=== PATIENT | female | born 1970 | race Two or more races ===

== ENCOUNTER 2024-09-28 19:25 | Inpatient (IN) | payer OTHER, SELFPAY ==
[2024-09-28 19:27] VITALS: PULSE 83; RESP 20; O2SAT 100; BMI 22.8
[2024-09-28 21:00] VITALS: BP 122/71; PULSE 87; RESP 18; TEMP 36.9; O2SAT 95
--- NOTE | 2024-09-28 21:03 | PD.EDRME ---
Rapid Medical Screening Exam RME Arrival date/time: 09/28/24 19:25 53-year-old female past medical history of abdominal surgeries presents emergency department complaining of severe abdominal pain 10 out of 10 with nausea and vomiting has been ongoing for 3 days. Chief Complaint: Abdominal Pain Time Seen by Provider: 09/28/24 20:18 Vital signs: Vital Signs Temperature 98.4 F 09/28/24 21:00 Pulse Rate 87 09/28/24 21:00 Respiratory Rate 18 09/28/24 21:00 Blood Pressure 122/71 09/28/24 21:00 Pulse Oximetry (%) 95 09/28/24 21:00 Oxygen Delivery Method Room Air 09/28/24 21:00 Vital signs reviewed by provider: Yes
[2024-09-28] MEDS: ONDANSETRON ODT 4 MG TABRAP PO (21:23)
[2024-09-28] MEDS: KETOROLAC INJ 60 MG/2 ML VIAL 30 MG IM (21:24)
--- NOTE | 2024-09-28 21:43 | XR_ITS ---
Examination: CT abdomen with intravenous contrast CT pelvis with intravenous contrast 2-D coronal reconstructions 2-D sagittal reconstructions Date and time of exam:September 28, 2024 10:53 PM INDICATIONS: Onset severe lower abdominal pain today. CTDI: vol (mGy) 5.27 DLP: (mGycm) 273 Technique: Multiple axial sections of the abdomen and pelvis have been obtained. 64 slice high-resolution scanner used. 3 mm axial sections have been obtained, post intravenous injection 60 cc [id number] 2-D sagittal, coronal reconstructions obtained. Low dose protocols were performed. One or more of the following dose reduction techniques were used; automated exposure control, adjustment of the mA and/or KV according to patient size, use of iterative reconstruction technique. Findings: No focal liver lesions Mild splenomegaly No gallstones No pancreatic mass No renal or ureteral calculi, no hydronephrosis Multiple fluid distended small bowel loops with small bowel significant wall thickening Retroverted uterus Intact urinary bladder Prominent osteopenia with chronic osteoporotic compression L1 IMPRESSION: Small bowel obstruction pattern Recommend Gastrografin small bowel series follow-up
[2024-09-28 21:48] LABS: Basophils % (Auto) 0 % (0-2.5); Eosinophils % (Auto) 0 % (0-10); Hematocrit 38.6 % (36.0-46.0); Hemoglobin 13.4 g/dL (12.0-16.0); Immature Granulocytes % (Auto) 0 % (0-0); Immature Granulocytes Auto 0.02 Thou/mm3 (0.00-0.00); Lymphocytes # (Auto) 0.7 Thou/mm3 (1.0-4.8); Lymphocytes % (Auto) 7 % (10-50); Mean Corpuscular HGB Conc 34.7 g/dl (31.0-37.0); Mean Corpuscular Hemoglobin 29.8 pg (25.0-35.0); Mean Corpuscular Volume 86 fL (80-100); Monocytes # (Auto) 0.5 Thou/mm3 (0.0-0.8); Monocytes % (Auto) 6 % (0-12); Neutrophils # (Auto) 7.9 Thou/mm3 (1.8-7.7); Neutrophils % (Auto) 87 % (37-80); Nucleated Red Blood Cell % 0 /100 WBC (0); Platelet Count 190 Thou/mm3 (140-440); RDW Standard Deviation 42.3 fL (36.4-46.3); Red Blood Count 4.49 Miln/mm3 (4.00-5.20); White Blood Count 9.1 Thou/mm3 (3.6-11.0)
[2024-09-28 21:58] LABS: Collection Type, Urine Clean Catch
[2024-09-28 22:01] LABS: Bilirubin,Urine Negative (Negative); Blood,Urine 1+ (Negative); Clarity,Urine Clear (Clear/Hazy); Color,Urine Yellow (Lt Yel-Yel); Culture Indicated,Urine Not Indicated; Glucose, Urine Negative (Negative); Ketones,Urine 4+ (Negative); Leukocyte Esterase,Urine Negative (Negative); Nitrite,Urine Negative (Negative); PH,Urine 8.5 (5.0-7.0); Protein,Urine 2+ (Neg - Trace); RBC,Urine 39 /hpf (0-3); Specific Gravity,Urine 1.028 (1.001-1.035); Squamous Epithelial Cell,Urine 2 /hpf (0-5); Urobilinogen,Urine Negative mg/dL (0.0-1.0); WBC,Urine 2 /hpf (0-5)
[2024-09-28 22:12] LABS: Alanine Aminotransferase 16 U/L (10-49); Albumin/Globulin Ratio 1.6 (1.2-2.2); Alkaline Phosphatase 67 U/L (46-116); Anion Gap 13 (7-16); Aspartate Amino Transferase 21 U/L (0-34); BUN/Creatinine Ratio 19 Ratio (12-20); Bilirubin,Total 1.4 mg/dL (0.3-1.2); Blood Urea Nitrogen 15 mg/dL (9-23); Calcium 10.7 mg/dL (8.3-10.6); Calcium (Corrected) 10.7 mg/dL (8.5-10.1); Carbon Dioxide 23.4 mMol/L (20.0-31.0); Chloride 102 mMol/L (98-107); Creatinine (Component) 0.8 mg/dL (0.6-1.3); Estimated Creatinine Clearance 65.1 mL/min (>60); Globulin 3.2 gm/dL (2.3-3.5); Glucose 129 mg/dL (74-106); Lipase 40 U/L (12-53); Osmolality,Calculated 278 (275-295); Potassium 3.4 mMol/L (3.4-5.1); Sodium 138 mMol/L (136-145); Total Protein 8.2 gm/dL (5.7-8.2); eGFR > 60 See Note
--- NOTE | 2024-09-28 22:28 | PC.NURSE ---
Use metal milling machine operator #[id number] CT screening.
[2024-09-28 23:11] VITALS: BP 100/73; PULSE 81; RESP 18; TEMP 36.9; O2SAT 99
--- NOTE | 2024-09-28 23:55 | EDNOTE_ITS ---
ED Abdominal Pain RME/HPI General Chief Complaint: Abdominal Pain Stated complaint: ABD PAIN Time seen by provider: 09/28/24 20:18 Arrival date/time: 09/28/24 19:25 Source: patient Mode of arrival: ambulatory Limitations: language barrier (Mandarin) RME / HPI RME / HPI narrative: 09/28/24 19:25 53-year-old female past medical history of abdominal surgeries presents emergency department complaining of severe abdominal pain 10 out of 10 with nausea and vomiting has been ongoing for [address] CRAWFORD MAIN ED EVALUATION: 53-year-old female patient presents to the emergency department with complaints of abdominal pain. She primarily speaks Mandarin, and obtaining a full history was limited despite the use of a search marketing specialist. The patient reported a history of two previous intestinal surgeries, though the etiology and details of the procedures are unknown. A midline abdominal surgical scar is noted on examination. Patient also reports 3-day history of nausea and vomiting. Related Data Allergies Allergy/AdvReac Type Severity Reaction Status Date / Time No Known Allergies Allergy Verified 09/28/24 19:31 Review of Systems Review of Systems Systems Reviewed: All systems reviewed, normal except as documented Past Medical History Past Medical History CARDIAC: Negative Cardiac Disorders RESPIRATORY: Negative Asthma GENITOURINARY: Negative Renal Disease ENDOCRINE: Negative Diabetes Mellitus Type 2 HEMATOLOGIC: Negative Sickle Cell Disease Social History SMOKING STATUS: Never smoker ED Exam Narrative Physical exam: GENERAL APPEARANCE: alert and oriented x 4, well-developed, well-nourished, no acute distress VITALS: All vitals were reviewed and the pulse ox is 99% on room air, which is normal according to my interpretation. HEENT: Normocephalic, atraumatic; pupils equal, round, reactive to light; EOMI; mucous membranes pink, moist; oropharynx clear NECK: Supple LUNGS: CTABL; no wheezes, no rales, no rhonchi HEART: Regular rate, regular rhythm; normal S1, S2; no murmurs ABDOMEN: non distended; normal BS; soft, mild tenderness, no guarding, no rebound; no masses, no organomegaly, no hernia, midline abdominal surgical scar BACK: no CVA tenderness EXTREMITIES: atraumatic; no edema NEUROLOGIC: awake; alert and oriented x4; cranial nerves II-XII grossly intact; no focal sensory or motor deficits PSYCHIATRIC: appropriate mood and affect SKIN: warm, dry, normal color; no rashes General Limitations: Present language barrier (Mandarin) Course Quality Measures none Orders Category Date Time Status COVID-19 Screening Questionnaire NOW Care 09/29/24 00:[address] Screening NOW Care 09/28/24 21:43 Active Decision to Admit X1 Care 09/29/24 00:[address] abdomen pelvis w con Stat Exams 09/28/24 21:43 Completed XR small bowel single contrast Stat Exams 09/29/24 00:37 Ordered CBC Stat Lab 09/28/24 21:14 Completed CMP [Comprehensive Metabolic Panel] Stat Lab 09/28/24 21:14 Completed Lipase Stat Lab 09/28/24 21:14 Completed Urinalysis, C/S if Indicated Stat Lab 09/28/24 21:48 Completed Ketorolac Inj [Toradol Inj] Med 09/28/24 21:02 Discontinued 30 mg IM X1 ONE Morphine Inj Med 09/28/24 22:17 Discontinued 5 mg IVP X1 ONE Ondansetron Inj [Zofran Inj] Med 09/28/24 22:17 Discontinued 4 mg IV X1 ONE Ondansetron Odt [Zofran Odt] Med 09/28/24 21:02 Discontinued 4 mg PO X1 ONE Vital Signs Vital signs: Vital Signs Temperature 98.4 F 09/28/24 21:00 Pulse Rate 87 09/28/24 21:00 Respiratory Rate 18 09/28/24 21:00 Blood Pressure 122/71 09/28/24 21:00 Pulse Oximetry (%) 95 09/28/24 21:00 Oxygen Delivery Method Room Air 09/28/24 21:00 Abdominal Pain MDM MDM Narrative MDM Narrative:: 53 year old female coming in for abdominal pain. CT reveals SBO pattern. Case d/w hospitalist resident who accepts patient for admission. Gastrografin small bowel series ordered. Scribe Attestation: Maribel Abdi, am scribing for and in the presence of Dr. Crawford. Provider Notation: Although this document has been carefully reviewed, there may still be some phonetic and other typographical errors. These errors are purely grammatical due to imperfections in the software program and should not be construed in any way to compromise the substance of the patient's medical care during this visit. Patient data External records reviewed:: None Clinical information provided by:: patient and family Social determinants that could affect healthcare access:: other (specify) (language barrier) Patient has the following chronic illnesses:: See PMH How is presenting disease/condition affected by chronic disease/condition?: no chronic disease Evaluation data The following diagnostics were reviewed and interpreted by me:: lab results and radiology exam(s) Lab and/or radiology exams considered but not ordered:: none Interpretation Summary: I personally reviewed the radiology data and agree with the radiologist's interpretation. Examination: CT abdomen with intravenous contrast CT pelvis with intravenous contrast 2-D coronal reconstructions 2-D sagittal reconstructions Date and time of exam:September 28, 2024 10:53 PM INDICATIONS: Onset severe lower abdominal pain today. Findings: No focal liver lesions Mild splenomegaly No gallstones No pancreatic mass No renal or ureteral calculi, no hydronephrosis Multiple fluid distended small bowel loops with small bowel significant wall thickening Retroverted uterus Intact urinary bladder Prominent osteopenia with chronic osteoporotic compression L1 IMPRESSION: Small bowel obstruction pattern Recommend Gastrografin small bowel series follow-up Dictated By: César Duarte MD Medications / Prescriptions Medications or Prescriptions considered but not ordered:: none Medication administrations:: Medication Administration History Discontinued Medications Ketorolac Tromethamine (Ketorolac Inj 60 Mg/2 Ml Vial) 30 mg IM X1 ONE Stop: 09/28/24 21:03 Last Admin: 09/28/24 21:24 Dose: 30 mg Documented By: Morphine Sulfate (Morphine Sulf Inj 10 Mg/Ml Vial) 5 mg IVP X1 ONE Stop: 09/28/24 22:18 Ondansetron HCl (Ondansetron Odt 4 Mg Tabrap) 4 mg PO X1 ONE; Protocol Stop: 09/28/24 21:03 Last Admin: 09/28/24 21:23 Dose: 4 mg Documented By: Ondansetron HCl (Ondansetron Inj 2 Mg/Ml Inj 2 Ml) 4 mg IV X1 ONE Stop: 09/28/24 22:18 as above Consultations Consultation(s) initiated? (list below): Yes Consultation #1 (Physician, Specialty, Details): Hospitalist resident made aware of the patient?s HPI, PMHx, lab and/or radiology results. Treatment plan was discussed. Accepts patient for admission. Time: 00:34 Diagnosis Differential diagnosis abdominal pain: abdominal pain, diverticulitis, gastroenteritis and small bowel obstruction Most likely diagnosis given after review of the tests above:: Small bowel obstruction Admission Indicated Admission indicated?: indicated Admission Request Was there a request for admission?: Yes Admission Attestation Admission request attestation: Discussed case with [] from Hospitalist service regarding admission. Discussed patients ED course, exam findings, labs, and radiology results. The Hospitalist [agrees,declines] to accept the patient for admission. Disposition Plan Disposition Plan: Admit Discharge Plan Plan Patient Disposition: Admit Acute Care w/in Hospital Disposition Comment: MedSurg Prescriptions/Referrals Referrals: No Primary/Family,Physician [Primary Care Provider] - In 1 week Problem List Clinical Impression: Small bowel obstruction Patient/Caregiver Discharge Instructions Print Language: Albanian Stand Alone Forms: Fela Award Info., Patient Portal Info Letter
[2024-09-29] VITALS (9 sets, daily range): BP systolic 99–123; BP diastolic 70–90; PULSE 69–77; RESP 15–98; TEMP 36.1–36.8; O2SAT 97–100; BMI 22.8
--- NOTE | 2024-09-29 00:37 | XR_ITS ---
Examination: Small bowel series of KUBs Examination type: September 29, 2024 0114 hours INDICATIONS: Small bowel obstruction pattern on CT abdomen and pelvis September 28, 2024, abdominal pain and distention this week TECHNIQUE AND FINDINGS: Production Finisher film AP abdomen supine single view demonstrates contrast in the kidneys Patient received 120 cc Gastrografin with 30 minute 1 hour films obtained demonstrating distended jejunal small bowel loops IMPRESSION: Distended small bowel loops Multiple additional delayed films will be obtained
--- NOTE | 2024-09-29 02:15 | PD.RESHP ---
Documentation for date of: 09/29/24 [facility] History of Present Illness Chief complaint: Left lower abdominal pain x 3 days History of present illness: Patient is a 53-year-old Mandarin-speaking female with past medical history of partial colectomy in 2018 and SBO in 2020 requiring another bowel surgery who presented to the ED on 09/28/2024 with symptoms of left lower abdominal pain for 3 days. History was obtained using telephone HCIN interpretation services for Mandarin. Patient had worsening of the pain as well as nausea and 1 episode of nonbloody vomiting today which prompted her to come to the ED. Patient states that she last passed soft stool around approximately 11 am and 2 pm today. Patient states the reason for partial colectomy in 2019 was for inflammation. Denies history of cancer. Patient does not know if she had any history suggestive of inflammatory bowel diseases, diverticulitis, or ischemic bowel. Patient had a second surgery in 2020 requiring removal of another part of the bowel due to obstruction. Patient denies fevers, chills, sweats. Denies any recent weight loss. Currently not endorsing nausea or vomiting. ED Course: -Initial vitals were hemodynamically stable -Labs showed no abnormalities on CBC and CMP other than hypercalcemia of 10.7 and elevated total bilirubin 1.4 -In the ED, patient was given Zofran 4 mg IV x1, ketorolac 30 mg IM x1 -Patient was admitted for small bowel obstruction Review of Systems Review of systems otherwise negative except what is mentioned above. Past Medical History Past Medical History Comments PMH COMMENT: Past Medical History: None Family History: No noted family history of GI disorders Surgical History: Partial colectomy 2018, SBO requiring resection of bowel 2020 Social History: Denies history of smoking, denies current alcohol use, denies recreational drug use Current Medications: None (Source: Patient) Allergies: No known drug allergies Exam Vital Signs Temp Pulse Resp BP Pulse Ox O2 Del Method 98.4 F 81 18 100/73 99 Room Air 09/28/24 23:11 09/28/24 23:11 09/28/24 23:11 09/28/24 23:11 09/28/24 23:11 09/28/24 23:11 Narrative Exam Physical Exam General: Awake and in no acute distress. Speaks Mandarin. Conversational and non-toxic appearing. HEENT: Normocephalic, atraumatic, mucous membranes moist. Heart: Regular rate and rhythm, no murmurs. Lungs: Clear to auscultation with no wheezing or crackles. Abdomen: Large midline surgical scar present, well healed. Tenderness to palpation especially left lower quadrant. Soft, nondistended, minimal bowel sounds heard. Neurologic: Alert and oriented x3, no gross neurological deficit, and patient able to move all 4 extremities. Extremities: No edema. Skin: No rash or ecchymoses. Results: Labs 09/29/24 05:06 09/29/24 05:06 Labs: Short CBC 09/28/24 Range/Units 21:14 WBC 9.1 (3.6-11.0) Thou/mm3 Hgb 13.4 (12.0-16.0) g/dL Hct 38.6 (36.0-46.0) % Plt Count 190 (140-440) Thou/mm3 BMP 09/28/24 21:14 Sodium 138 Potassium 3.4 Chloride 102 Carbon Dioxide 23.4 BUN 15 Creatinine 0.8 Glucose 129 H Calcium 10.7 H Liver Function 09/28/24 Range/Units 21:14 Total Bilirubin 1.4 H (0.3-1.2) mg/dL AST 21 (0-34) U/L ALT 16 (10-49) U/L Alkaline Phosphatase 67 (46-116) U/L Albumin 5.0 (3.5-5.0) gm/dL Urine 09/28/24 Range/Units 21:48 Urine Color Yellow (Lt Yel-Yel) Urine Clarity Clear (Clear/Hazy) Urine pH 8.5 H (5.0-7.0) Ur Specific [place] 1.028 (1.001-1.035) Urine Protein 2+ A (Neg - Trace) Urine Glucose (UA) Negative (Negative) Quality Measures Quality Measures none Medications Home Medications and Allergies Home Medications ?Medication ?Instructions ?Recorded ?Confirmed ?Type No Known Home Medications 09/29/24 09/29/24 History Allergies Allergy/AdvReac Type Severity Reaction Status Date / Time No Known Allergies Allergy Verified 09/28/24 19:31 Visit Medications Acetaminophen (Acetaminophen 325 Mg Tablet) 650 mg PO Q6H PRN PRN Reason: Fever >100.4 or Pain 1-10 Stop: 10/29/24 01:55 Enoxaparin Sodium (Enoxaparin Sod Inj 40 Mg/0.4 Ml Syringe) 40 mg SC QDAY [facility] Stop: 10/13/24 08:59 Lactated Ringer's (Lactated Ringers) 1,000 mls @ 75 mls/hr IV .[id number] [facility] Stop: 09/29/24 15:19 Ketorolac Tromethamine (Ketorolac Inj 30 Mg/Ml Vial) 30 mg IVP Q6H PRN PRN Reason: PAIN SCALE 4-6 (Moderate Stop: 10/04/24 02:00 Morphine Sulfate (Morphine Sulf Inj 10 Mg/Ml Vial) 1 mg IVP Q6H PRN PRN Reason: PAIN SCALE 7-10 (Severe Stop: 10/04/24 01:55 Ondansetron HCl (Ondansetron Inj 2 Mg/Ml Inj 2 Ml) 4 mg IV Q6H PRN; Protocol PRN Reason: NAUSEA OR VOMITING Stop: 10/29/24 01:55 Pantoprazole Sodium (Pantoprazole Inj 40 Mg Vial) 40 mg IVP QDAY [facility] Stop: 10/29/24 08:59 Discontinued Medications Ketorolac Tromethamine (Ketorolac Inj 60 Mg/2 Ml Vial) 30 mg IM X1 ONE Stop: 09/28/24 21:03 Last Admin: 09/28/24 21:24 Dose: 30 mg Morphine Sulfate (Morphine Sulf Inj 10 Mg/Ml Vial) 5 mg IVP X1 ONE Stop: 09/28/24 22:18 Last Admin: 09/29/24 02:05 Dose: Not Given Ondansetron HCl (Ondansetron Odt 4 Mg Tabrap) 4 mg PO X1 ONE; Protocol Stop: 09/28/24 21:03 Last Admin: 09/28/24 21:23 Dose: 4 mg Ondansetron HCl (Ondansetron Inj 2 Mg/Ml Inj 2 Ml) 4 mg IV X1 ONE Stop: 09/28/24 22:18 Last Admin: 09/29/24 02:04 Dose: Not Given Assessment & Plan Plan 53-year-old Mandarin-speaking female with past medical history of partial colectomy in 2018 and SBO in 2020 requiring another bowel surgery who presented to the ED on 09/28/2024 with symptoms of worsening left lower abdominal pain for 3 days and episode of vomiting, admitted for small bowel obstruction found on imaging. #Small bowel obstruction Patient with history of major abdominal surgery and prior SBO also requiring surgery. -Gastrografin small bowel series -Pain control with ketorolac, morphine for severe pain -Zofran as needed for nausea -NPO -Aspiration precautions -Will insert NG tube if patient becomes symptomatic -IV maintenance fluids LR at 75 ml/hr for 1L #Mild hypercalcemia Corrected calcium 10.7 on chem panel. -IV fluid hydration -Trend on AM labs #Elevated total bilirubin Tbili of 1.4 on admission. -Trend on AM labs DVT prophylaxis: Lovenox 40 mg subQ GI prophylaxis: Pantoprazole 40 mg IV daily Diet: NPO Bates: None Lines: Peripheral IV Antibiotics: None CODE STATUS: FULL Reason for hospitalization: Small bowel obstruction Patient plan of care was discussed with the attending physician, Dr. Velasquez. Stormy Mandel, PGY-2 Attending Provider Attestation/Addendum 53-year-old female with history of bowel surgery, bowel obstruction was admitted for abdominal pain pain in the left lower quadrant associated with vomiting. Imaging showed small bowel obstruction. Patient will receive initial conservative management. Reassess periodically and repeat imaging. Check electrolytes including mag and Phos.
[2024-09-29] MEDS: RINGERS LACTATED 1000 ML 1,000 ML 75 ML IV (02:31)
--- NOTE | 2024-09-29 04:30 | XR_ITS ---
Examination: Abdomen AP single view Technique: AP portable supine abdomen, single view Exam date and time: September 29, 2024 0423 hours INDICATIONS: 3 hour delayed film post small bowel series today. However, contrast is present throughout the colon FINDINGS: Negative for complete small bowel obstruction abdominal pain and distention this week impression: Contrast distended ileal small bowel loops
[2024-09-29 05:40] LABS: Basophils % (Auto) 0 % (0-2.5); Eosinophils # (Auto) 0.1 Thou/mm3 (0.0-0.5); Eosinophils % (Auto) 1 % (0-10); Hematocrit 43.6 % (36.0-46.0); Hemoglobin 14.7 g/dL (12.0-16.0); Immature Granulocytes % (Auto) 0 % (0-0); Immature Granulocytes Auto 0.02 Thou/mm3 (0.00-0.00); Lymphocytes % (Auto) 11 % (10-50); Mean Corpuscular HGB Conc 33.7 g/dl (31.0-37.0); Mean Corpuscular Hemoglobin 29.5 pg (25.0-35.0); Mean Corpuscular Volume 87 fL (80-100); Monocytes # (Auto) 0.7 Thou/mm3 (0.0-0.8); Monocytes % (Auto) 8 % (0-12); Neutrophils # (Auto) 7.1 Thou/mm3 (1.8-7.7); Neutrophils % (Auto) 79 % (37-80); Nucleated Red Blood Cell % 0 /100 WBC (0); Platelet Count 220 Thou/mm3 (140-440); RDW Standard Deviation 43.8 fL (36.4-46.3); Red Blood Count 4.99 Miln/mm3 (4.00-5.20)
[2024-09-29 05:58] LABS: Anion Gap 12 (7-16); BUN/Creatinine Ratio 23 Ratio (12-20); Blood Urea Nitrogen 18 mg/dL (9-23); Calcium 10.6 mg/dL (8.3-10.6); Chloride 106 mMol/L (98-107); Creatinine (Component) 0.8 mg/dL (0.6-1.3); Estimated Creatinine Clearance 65.1 mL/min (>60); Glucose 129 mg/dL (74-106); Osmolality,Calculated 287 (275-295); Potassium 3.3 mMol/L (3.4-5.1); Sodium 142 mMol/L (136-145); eGFR > 60 See Note
--- NOTE | 2024-09-29 06:11 | PC.NURSE ---
MD Velasquez at bedside [facility] pt, HCIN safety advisor# [id number].
--- NOTE | 2024-09-29 06:21 | XR_ITS ---
Examination: Abdomen AP single view Technique: AP portable supine abdomen, single view Exam date and time: September 29, 2024 at 0700 hours INDICATIONS: 5 hour delayed film post small bowel series today FINDINGS: Contrast present almost entirely in the colon IMPRESSION: Negative for complete small bowel obstruction
[2024-09-29 06:59] LABS: Magnesium 2.5 mg/dL (1.6-2.6); Phosphorous 5.4 mg/dL (2.4-5.1)
--- NOTE | 2024-09-29 07:41 | PC.NURSE ---
Received report from Raza ORTEGA and assumed care of patient. Presents to ER for abd pain. Patient is GCS15 and being admitted for SBO. Patient is awake and answers all questions appropriately. Patient states current pain is 8/10.
--- NOTE | 2024-09-29 08:09 | PC.NURSE ---
Patient ambulated to restroom.
[2024-09-29] MEDS: PANTOPRAZOLE INJ 40 MG VIAL IVP (09:04)
[2024-09-29] MEDS: ENOXAPARIN SOD INJ 40 MG/0.4 ML SYRINGE SC (09:04)
[2024-09-29] MEDS: ONDANSETRON INJ 2 MG/ML INJ 2 ML 4 MG IV (09:05)
[2024-09-29] MEDS: POTASSIUM CHL 10 mEq IVPB 10 MEQ/100 ML BAG 100 MEQ IV ×2 (09:05→11:13)
[2024-09-29] MEDS: MORPHINE SULF INJ 10 MG/ML VIAL IVP (09:05)
--- NOTE | 2024-09-29 10:12 | PC.NURSE ---
Report given to Karol ORTEGA in Med Surg.
[2024-09-29] MEDS: POTASSIUM CHL 10 mEq IVPB 10 MEQ/100 ML BAG 50 MEQ IV ×2 (13:14→15:15)
--- NOTE | 2024-09-29 14:25 | ESDS_ITS ---
Planned Discharge Date 09/29/24 DS: Providers Provider Date of admission: 09/29/24 01:56 Primary care physician: Physician No Primary/Family Admitting Provider: Bhanu Velasquez MD Attending Provider on Admission: Ermias Raygoza MD Attending Provider on DC: Roxi Vines MD Discharging Provider: Roxi Vines MD DS: Diagnosis Problem List Completed Was Problem List Reviewed/Reconciled?: Yes Hospital Course Hospital Course Hospital course: Summary: 53-year-old Mandarin-speaking female with past medical history of partial colectomy in 2018 and SBO in 2020 requiring another bowel surgery who presented to the ED on 09/28/2024 with symptoms of worsening left lower abdominal pain for 3 days and episode of vomiting, admitted for small bowel obstruction found on imaging and resolved upon discharge. ER Course: -Initial vitals were hemodynamically stable -Labs showed no abnormalities on CBC and CMP other than hypercalcemia of 10.7 and elevated total bilirubin 1.4 -In the ED, patient was given Zofran 4 mg IV x1, ketorolac 30 mg IM x1 -Patient was admitted for small bowel obstruction Hospital Course: Small bowel obstruction noted on CT abdomen with small bowel obstruction pattern noted. Patient stated she had a cholecystectomy in 2018 secondary to possible ulcerative colitis, patient described as ulcer that burst and through an roller coaster operator services stated she believed she had ulcerative colitis. She later stated in 2020 she had a revision of the cholecystectomy. Updated patient and explained that the small bowel series showed resolution of the small bowel obstruction likely secondary to Gastrografin. Patient stated she now passing gas and also having bowel movements after the Gastrografin small bowel follow- through. Explained the patient that given previous abdominal surgeries she is at increased risk of small bowel obstructions. Patient is recommended to follow-up with primary care provider and make an appointment for a plastics process hand as there is a possible history of UC. Patient was understanding patient lives out of town in [place] and will be following up with her PCP there. Instructions: -Please follow up with your primary care provider within one week of discharge and ask for a referral for Refinery Operator Coking for you abdominal pain -If your symptoms worsen,please seek immediate medical attention and return to your nearest emergency room -If you do not have a primary care provider, you may follow up at the [facility] at [address], [place] [address], Disposition: Home #Small bowel obstruction, resolved. #Mild hypercalcemia #Elevated total bilirubin - The patient's plan was discussed with attending Dr. Raygoza and senior residents Dr. Andres Vines MD PGY1 Internal Medicine Time Spent with Patient Time attestation: Total time spent providing and/or coordinating discharge services: at least 35 minutes of time and coordination Exam Vital Signs Temp Pulse Resp BP Pulse Ox O2 Del Method 97.1 F 69 15 107/70 100 Room Air 09/29/24 12:00 09/29/24 12:00 09/29/24 12:00 09/29/24 12:09/29/24 12:09/29/24 12:00 Narrative Exam General Appearance: Alert & Oriented X3, well-nourished female who is lying in bed in no acute distress HEENT: Skull symmetrical and atraumatic. Conjunctivae pink and moist. Pupils equal, round, reactive to light and accommodation (PERRL). External ear without lesion or discharge. Straight, nares patient, mucosa pink, no discharge. No thyroid nodule appreciated. No cervical lymphadenopathy. Cardio: Normal Rate and Rhythm with S1 and S2 heart sounds. No murmurs or extra heart sounds auscultated. No bruits on carotid auscultation. No peripheral edema or cyanosis. Lungs: Symmetric with good expansion. Chest and back non-tender. Breath sounds vesicular without crackles, wheezing or rhonchi Abdomen: Non-tender, Non-distended, Normal Reactive Bowel Sounds Neuro: Alert, cooperative, oriented to person, place, and time. Speech clear. CN grossly intact. Upper motor strength 5/5 and Lower motor strength 5/5. Sensation intact. Discharge Plan Plan Patient Disposition: HOME (Self Care) Care Plan Goals: Instructions: -Please follow up with your primary care provider within one week of discharge and ask for a referral for Refinery Operator Coking for you abdominal pain -If your symptoms worsen,please seek immediate medical attention and return to your nearest emergency room -If you do not have a primary care provider, you may follow up at the [facility] at [facility] [address], [place] [address], Disposition: Home Prescriptions/Referrals Prescriptions/Med Rec: No Action No Known Home Medications Referrals: No Primary/Family,Physician [Primary Care Provider] - Patient/Caregiver Discharge Instructions Education Materials: Small Bowel Obstruction, How the Colon Works Print Language: Yoruba Stand Alone Forms: [employer]ela Award Info., Patient Portal Info Letter Discharge Order Discharge Orders: Discharge (Routine); Ordered 09/29/24 Ordered By: Roxi Vines Quality Discharge Quality Measures VTE prophylaxis MD Attestestation MD Attestation I have examined the patient, reviewed labs and imaging findings, discussed the case with the resident(s), and reviewed entered orders. I agree with the plan of care as outlined in this note. Dr. Raygoza
[2024-09-29 14:40] LABS: Potassium 3.9 mMol/L (3.4-5.1)
--- NOTE | 2024-09-29 16:43 | PC.CC ---
With court interpreter services for [place], court interpreter [place]lin #[id number]. Pt has limited Mos[place] speaking ability. ASW met with pt Alexzuhaircésar Shore at bedside to complete initial assessment. 53 yr old female admitted to hospitalist services for SBO. Pt is alert and oriented to person, place and situation. Pt expressed understanding admission orders. Pt able to confirm demographic information. Pt is from home [address] [place] [address] in [facility], pt is [facility] visiting a friend. Pt unable to name surrogate DM, stating she has no family in this area. Pt reports being independent with ambulation and in completing her ADLs. Pt reports she is not diabetic and is not on dialysis. Pt currently unemployed, and has [employer] [place] for primary health coverage. At time of D/c pt reports she will return to her friends residence.
== END 2024-09-29 17:59 | disposition home or self-care (01) | DRG 390 ==
LOC: SERX 09-29 00:33 → SERHOLD 09-29 02:22 → S3EX 09-29 10:11
PROVIDERS: Student in an Organized Health Care Education/Training Program; Admitting Provider Internal Medicine; Emergency Provider Emergency Medicine; Visit Provider Student in an Organized Health Care Education/Training Program
DX: K56.609 Unspecified intestinal obstruction, unspecified as to partial versus complete obstruction (principal); Z90.49 Acquired absence of other specified parts of digestive tract; E83.52 Hypercalcemia
CPT/HCPCS: 36415; 74018; 74177; 74250; 80048; 80053; 81001; 83690; 83735; 84100; 84132; 85025; 93225; A4649; J1650; J1885; J2270; J2405; J2470; J3480; J7120; Q0162; Q9967